=== PATIENT | male | born 1975 | race Caucasian/White ===

== ENCOUNTER → 2017-04-26 | Outpatient (CLI) | payer BC ==
[~2017-04-26] VITALS: Ht 180.3 cm; Wt 114.5 kg
[~2017-04-26] MED LIST: CENTRUM SILVER1 EAC1 PO; HYDROCODONE-AP1 EAC6 PO; IBUPROFEN 200200 M1 PO; LORTAB 5 MG/5001 TA1 PO; MOBIC15 MG PO; MOBIC7.5 MG PO; MULTIPLE VITAM1 EAC1 PO; NEURONTIN 300300 M1 PO; NEURONTIN300 MG PO; NORCO 5-325 TA1 EACH PO; TRILEPTAL 300300 MG PO
--- NOTE | ~2017-04-26 | HPC ---
[facility] [place] [address] PAIN MANAGEMENT CONSULTATION Name: JOB ROSSI Mj Room #: [facility] [id number] Admission: 04/26/17 Attend Phys: Kip Hurst DO Discharge: Date of : 79 Report #: [id number] THIS REPORT FOR: //name// CC: Janay Bauer MD FAM physician/PCP Kip Hurst DATE OF SERVICE: 04/26/2017 REFERRING PHYSICIAN: Janay Bauer MD CHIEF COMPLAINT: Low back pain, bilateral lower extremity pain with paresthesias. HISTORY OF PRESENT ILLNESS: As you know, the patient is a 42-year-old male who returns today in followup visit with recurrent low back pain, lower extremity pain with paresthesias. The patient has done very well with previous epidural injection, we last saw him on 01/28/2015, where he underwent an epidural injection under fluoroscopic guidance, which provided near 100% improvement in overall pain until just recently. He has had a slow and progressive return of symptoms, returning today in followup visit requesting an epidural injection under fluoroscopic guidance. He denies new injury or new trauma that may have led to symptoms. He indicates pain level about 3/10, states pain is exacerbated with standing, walking, lying down, improves with medications and previous epidural injections. He returns today with no changes in his medical history requesting epidural injection under fluoroscopic guidance to build on success of previous interventions. ALLERGIES: No known drug allergies. CURRENT MEDICATIONS: Multivitamin and Advil p.r.n. SOCIAL HISTORY: The patient denies tobacco, alcohol, IV or illicit drug use. He is a maintenance team leader. He is working, not receiving workmen's compensation, unaccompanied today. IMAGING: There is no new imaging available. PHYSICAL EXAMINATION: VITAL SIGNS: Blood pressure 139/90, pulse 80, respiratory rate 16 and unlabored. The patient is 100% on room air, height 5 feet 11 inches tall, weight 252.4 pounds, and BMI calculated 35.2. GENERAL: Well-developed, well-nourished, well-hydrated 42-year-old male, appearing his stated age, placing current pain score around 3/10. HEENT: Normocephalic, atraumatic. Pupils are equal, round, and reactive to light. Extraocular muscles are intact. Speech is fluent. [facility] [address] [place] [address] PAIN MANAGEMENT CONSULTATION Name: JOB ROSSI Mj Room #: [facility] [id number] Admission: 04/26/17 Attend Phys: Kip Hurst DO Discharge: Date of : 79 Report #: [id number] LUNGS: Clear. No wheeze, rhonchi, or rales. CARDIOVASCULAR: Regular. No appreciable gallop or rub. ABDOMEN: Soft, nontender, nondistended, normoactive bowel sounds. EXTREMITIES: Show no clubbing, no cyanosis, no edema. MUSCULOSKELETAL: Seated straight leg raising negative. Supine straight leg raising positive both left and right side at around 45-degree angle. Bhavana test negative. Modified Gaenslen's positive for axial low back pain. Gait is normal. Stance normal. Muscle bulk and tone equal and symmetrical in lower extremities. Ankle clonus negative. Babinski is negative. ASSESSMENT: 1. Symptomatic lumbar radiculopathy. 2. Spinal stenosis of the lumbar spine. 3. Displacement of lumbar intervertebral disk with radiculopathy. 4. Lumbosacral spondylosis with radiculopathy. 5. Chronic intractable pain. PLAN: 1. The patient returns today in followup visit requesting to undergo next in the series of epidural injections under fluoroscopic guidance. The patient has been lost followup visit since 01/28/2015, where he underwent an epidural injection at that visit with 100% improvement in overall pain lasting until just recently. The patient returns stating no new injury, no new trauma, but recurrence of low back pain, lower extremity symptoms similar to his previous evaluations. The patient has requested and we will perform an epidural injection today. He was advised the risks and benefits of the procedure. These risks include, but are not necessarily limited to bleeding, bruising, infection, worsening of pain, no relief of pain, also risk of temporary or permanent muscle weakness, temporary or permanent nerve damage, possible paralysis and . The patient states he understood and wished to proceed. 2. No medication changes were made at today's visit, the patient to continue current medical therapy as previously prescribed. 3. The patient to return to our clinic on an as needed basis for possible repeat epidural injection, we will make ourselves available if he has returned of symptoms, he can return and to undergo the next in the series of epidural injections. PROCEDURE NOTE DESCRIPTION OF PROCEDURE: L5-S1 interlaminar epidural steroid injection under fluoroscopic guidance. This is the first procedure of the second series that the patient is undergoing. After obtaining written consent, the patient was taken back to the fluoroscopy suite, placed in a prone position with pillow under the abdomen to decrease [address] [address] PAIN MANAGEMENT CONSULTATION Name: JOB ROSSI Room #: REG ANANDA Means#: [id number] Admission: 04/26/17 Attend Phys: Kip Hurst DO Discharge: Date of : 79 Report #: [id number] lumbar lordosis. The skin overlying the lumbosacral area was then prepped and draped in aseptic fashion. The L5-S1 vertebral interspace was then identified by AP fluoroscopy. The skin and subcutaneous tissue overlying the target site of injection was anesthetized with 3 mL 1% lidocaine. A 20-gauge 3-1/2-inch Tuohy needle was then advanced under fluoroscopic guidance towards the epidural space using a paramedian approach. The epidural space was identified using loss of resistance to air technique. After negative aspiration for heme or cerebrospinal fluid, a total of 1 mL of Omnipaque was injected. A lumbar epidurogram was confirmed using both AP and lateral fluoroscopy. After negative aspiration for heme or cerebrospinal fluid, 5 mL of a solution containing 2 mL 40 mg per mL, 80 mg total triamcinolone, 3 mL lidocaine 1% was injected in increments. Contrast spread was noted posterior epidural space. The needle was then retracted approximately half way and needle tract flushed with 1 mL of 1% lidocaine. Needle was then removed. There were no apparent sensory or motor deficits in the lower extremity following the procedure. A sterile bandage was placed over the injection site. The heart rate, pulse, oximetry and blood pressure were continuously monitored after the procedure. There were no apparent complications. The patient tolerated the procedure well and was carefully escorted to the recovery room in stable condition. There were no apparent complications. After meeting discharge criteria, the patient was then discharged home. By: [id number] Kip Hurst DO /lexie
[2017-04-26 10:20] VITALS: BP 139/90
== END | disposition home or self-care (01) ==
LOC: PAIN 06:53
DX: M51.16 Intervertebral disc disorders with radiculopathy, lumbar region (principal); M48.06 Spinal stenosis, lumbar region; M47.27 Other spondylosis with radiculopathy, lumbosacral region; G89.29 Other chronic pain; Z87.891 Personal history of nicotine dependence